=== PATIENT | female | born 1960 | race Caucasian/White ===

== ENCOUNTER 2019-05-24 10:29 | Day surgery (SDC) | payer MEDICAID ==
[2019-05-16 16:35] LABS: BASOPHILS # (AUTO) 0.1 X10'3 (0-0.2); BASOPHILS % (AUTO) 0.7 % (0-1); EOSINOPHILS # (AUTO) 0.2 X10'3 (0-0.9); EOSINOPHILS % (AUTO) 1.8 % (0-6); LYMPHOCYTES # (AUTO) 2.1 X10'3 (1.1-4.8); LYMPHOCYTES % (AUTO) 24.8 % (21-51); MEAN CORPUSCULAR HEMOGLOBIN 28.5 PG (27.0-31.0); MEAN CORPUSCULAR HGB CONC 33.1 g/dL (33.0-36.5); MEAN CORPUSCULAR VOLUME 86.3 FL (78-98); MONOCYTES # (AUTO) 0.6 X10'3 (0-0.9); MONOCYTES % (AUTO) 7.2 % (2-12); NEUTROPHILS # (AUTO) 5.4 X10'3 (1.8-7.7); NEUTROPHILS % (AUTO) 65.5 % (42-75); PRE OP HEMATOCRIT 34.6 % (35.0-45.0); PRE OP HEMOGLOBIN 11.4 g/dL (12.0-16.0); PRE OP PLATELET COUNT 287 X10'3 (140-440); RED BLOOD COUNT 4.01 X10'6 (4.20-5.60); RED CELL DISTRIBUTION WIDTH 18.5 % (11.5-14.5)
[2019-05-16 16:48] LABS: ALBUMIN 3.3 G/DL (3.4-5.0); ALBUMIN/GLOBULIN RATIO 0.8 (1.1-1.5); ALKALINE PHOSPHATASE 88 IU/L (46-116); BLOOD UREA NITROGEN 39 MG/DL (7-18); BUN/CREATININE RATIO 17.2 (6.6-38.0); CHLORIDE 108 MMOL/L (99-107); CREATININE 2.27 MG/DL (0.40-0.90); PRE OP ALT 19 U/L (30-65); PRE OP ANION GAP 12 (8-16); PRE OP AST 12 U/L (10-37); PRE OP BILIRUB, TOTAL 0.2 MG/DL (0.0-1.0); PRE OP GLUCOSE 94 MG/DL (70-104); PRE OP POTASSIUM 4.1 MMOL/L (3.4-5.1); PRE OP SODIUM 139 MMOL/L (135-145); TOTAL CARBON DIOXIDE 19.1 MMOL/L (24-32); TOTAL PROTEIN 7.5 G/DL (6.4-8.2); eGFR 22 ML/MIN
[2019-05-16 16:50] LABS: PRE OP PARTIAL THROMB. TIME 22 SECONDS (22-32); PRE OP PROTIME 9.5 SECONDS (9.0-12.0)
[2019-05-16 16:51] LABS: PRE OP INR < 0.9 INR
[~2019-05-24] VITALS: Ht 175.3 cm; Wt 103.4 kg
[2019-05-24] VITALS (7 sets, daily range): BP systolic 146–166; BP diastolic 80–101
[~2019-05-24 10:29] MED LIST: ARIP2TAB20 PO; BACL10TA2 PO; BUPR300T6 PO; BUSP15TA7 PO; DOCUMENT DATE & TIME OF BETA-BLOCKER PO ONE; ESTR1TAB28 PO; HYDR-3686 PO; METO25TA6 PO; NIFE30TA95 PO; OMEP-50 PO; PRAZ1CAP5 PO; RANI150T8 PO; TRAZ-251 PO; VANCOMYCIN INJ 1000 MG in NORMAL SALINE 250ml IV.SOLN IV ONE; cefazolin/dext.iso 2gm/50ml 50 ML IV ONE; famotidine 20mg tablet PO ONE; ringers solution, lacted 1,000 ML IV SCH
[2019-05-24] MEDS ORDERED: BUPIVAcaine/PF 2.5 mg/ml (0.25%) 30ml vial ONE ×2 (10:56→12:52)
[2019-05-24] MEDS ORDERED: morphine 4 MG/ML inj SYRINge IV PRN ×2 (12:05)
[2019-05-24] MEDS ORDERED: ondansetron/PF 4mg/2ml inj IV PRN (12:05)
[2019-05-24] MEDS ORDERED: fentaNYL/PF 50MCG/1 ML 2ML syringe IV PRN ×2 (12:05)
[2019-05-24] MEDS ORDERED: labetalol 20mg/4ml (5mg/ml) syringe IV PRN (12:05)
[2019-05-24] MEDS ORDERED: ringers solution, lacted 1,000 ML IV SCH (12:05)
[2019-05-24] MEDS ORDERED: hydrALAZINE 20mg/ml inj. IV PRN (12:05)
[2019-05-24] MEDS ORDERED: sevoflurane 250ml liquid IH ONE (12:45)
[2019-05-24] MEDS ORDERED: triamcinolone acetonide 40mg/ml inj ONE (12:52)
[2019-05-24] MEDS ORDERED: midazolam 2 mg/2 ml injection ONE (12:53)
[2019-05-24] MEDS ORDERED: fentaNYL/PF 50MCG/1 ML 2ML syringe ONE (12:53)
[2019-05-24] MEDS ORDERED: etomidate 2mg/ml inj. ONE (12:55)
[2019-05-24] MEDS ORDERED: dexamethasone sod phosphate 4mg/ml inj. ONE (13:12)
[2019-05-24] MEDS ORDERED: ondansetron/PF 4mg/2ml inj ONE (13:12)
[2019-05-24] MEDS ORDERED: labetalol 20mg/4ml (5mg/ml) syringe IV ONE (13:18)
[2019-05-24] MEDS ORDERED: hydrALAZINE 20mg/ml inj. IV ONE (13:33)
--- NOTE | 2019-05-24 13:48 | NUR ---
Received from OR via , accompanied by Anesthesiologist DR GOMEZ and report given by Anesthesiolgist. AWAKENS TO VOICE. VITALS STABLE. DRESSING DI. PERRY PAIN. LT FOOT WARM AND PINK.
--- NOTE | 2019-05-24 14:48 | NUR ---
AWAKE AND ORIENTED. VITALS STABLE. DRESSING DI. STATES PAIN IMPROVING. HOME WITH HER DAUGHTER AT THIS TIME.
== END 2019-05-24 14:48 | disposition home or self-care (01) ==
LOC: PAS 10:29
PROVIDERS: ATTEND Orthopaedic Surgery
DX: S83.232A Complex tear of medial meniscus, current injury, left knee, initial encounter (principal); S83.282A Other tear of lateral meniscus, current injury, left knee, initial encounter; M94.262 Chondromalacia, left knee; I12.9 Hypertensive chronic kidney disease with stage 1 through stage 4 chronic kidney disease, or unspecified chronic kidney disease; N18.9 Chronic kidney disease, unspecified; K21.9 Gastro-esophageal reflux disease without esophagitis; F41.9 Anxiety disorder, unspecified; F32.89 Other specified depressive episodes; M17.0 Bilateral primary osteoarthritis of knee; F20.5 Residual schizophrenia; E66.01 Morbid (severe) obesity due to excess calories; Z68.38 Body mass index [BMI] 38.0-38.9, adult; Z87.891 Personal history of nicotine dependence; Z88.8 Allergy status to other drugs, medicaments and biological substances; Z79.899 Other long term (current) drug therapy; Z98.890 Other specified postprocedural states; Z90.49 Acquired absence of other specified parts of digestive tract; Z90.710 Acquired absence of both cervix and uterus; X58.XXXA Exposure to other specified factors, initial encounter; Y93.89 Activity, other specified; Y92.89 Other specified places as the place of occurrence of the external cause; Y99.8 Other external cause status
CPT/HCPCS: 29873; 29879; 29880; 36415; 80053; 82948; 85025; 85610; 85730; 93005; J0360; J1100; J2250; J2405; J3010; J3301; J3370; J3490; J7120; A4215; A4618; A6250; A6449; A7000